=== PATIENT | female | born 1995 | race Caucasian/White ===

== ENCOUNTER 2017-09-27 03:51 | Emergency (ER) | payer OTHER ==
[2017-09-27] MEDS ORDERED: Lidocaine 2.5%/Prilocain 2.5%* 5 GM TUBE TOPICAL ONE (04:47)
[2017-09-27 05:45] LABS: Hematocrit 42 % (35-47); Hemoglobin 14.3 g/dl (12.0-16.0); Mean Corpuscular HGB Conc 34 g/dl (31-36); Mean Corpuscular Hemoglobin 32 pg (27-31); Mean Corpuscular Volume 93 fL (80-97); Mean Platelet Volume 8 um3 (7.4-10.4); Red Blood Count 4.49 10^6/ul (4.0-5.4); Red Cell Distribution Width 13 % (10.5-15); White Blood Count 12.4 10^3/ul (3.5-10.8)
[2017-09-27 06:00] LABS: ALT 9 U/L (7-52); AST 17 U/L (13-39); Albumin 4.6 g/dL (3.2-5.2); Alkaline Phosphatase 44 U/L (34-104); Anion Gap 9 mmol/L (2-11); BUN/Creatinine Ratio 15.7 (8-20); Blood Urea Nitrogen 11 mg/dL (6-24); CO2 Carbon Dioxide 22 mmol/L (22-32); Calcium 9.6 mg/dL (8.6-10.3); Chloride 106 mmol/L (101-111); EGFR African American 138.6 (>60); EGFR Non-African American 107.8 (>60); Glucose 116 mg/dL (70-100); Sodium 137 mmol/L (133-145); Total Protein 7.6 g/dL (6.4-8.9)
[2017-09-27 06:24] VITALS: BP 130/77
--- NOTE | 2017-09-27 06:29 | ED ---
Randall Panchal Tiffany, scribed for Emerson Dillon on 09/27/17 at 0415 . Palpitations / Dysrhythmia - HPI Summary HPI Summary: This patient is a 21 year old F [facility] accompanied by mother with a chief complaint of heart palpitations since thirty minutes ago. Symptoms aggravated by nothing. Symptoms alleviated by nothing. Patient reports chest pain. She feels like she is having an anxiety attack. - History of Current Complaint Chief Complaint: EDDysrhythmPalp Time Seen by Provider: 09/27/17 04:00 Hx Obtained From: Patient Onset/Duration: Lasting Minutes - 30 min, Still Present Aggravating: Nothing Alleviating: Nothing - Allergy/Home Medications Allergies/Adverse Reactions: Allergies Allergy/AdvReac Type Severity Reaction Status Date / Time Pineapple AdvReac Severe Tongue Verified 09/04/15 17:56 Swelling Melatonin AdvReac Intermediate headaches Verified 09/04/15 17:56 PMH/Surg Hx/FS Hx/Imm Hx Previously Healthy: No GI History: Reports: Hx Gastroesophageal Reflux Disease Psychiatric History: Reports: Hx Anxiety Denies: Hx Panic Disorder Infectious Disease History: No Infectious Disease History: Denies: Traveled Outside the [place] in Last 30 Days - Social History Lives: With Family Alcohol Use: Rare Hx Substance Use: Yes Substance Use Type: Reports: Marijuana Hx Tobacco Use: No Smoking Status (MU): Never Smoked Tobacco Review of Systems Positive: Palpitations, Chest Pain Positive: Anxious All Other Systems Reviewed And Are Negative: Yes Physical Exam - Summary Physical Exam Summary: Appearance: Well appearing, no pain distress Skin: warm, dry, reflects adequate perfusion Head/face: normal Eyes: EOMI, SUSY ENT: normal Neck: supple, non-tender Respiratory: CTA, breath sounds present Cardiovascular: tachycardic Abdomen: non-tender, soft Bowel: present Musculoskeletal: normal, strength/ROM intact Neuro: normal, sensory motor intact, A&Ox3 Psych: patient is anxious Triage Information Reviewed: Yes Vital Signs On Initial Exam: Initial Vitals Temp Pulse Resp BP Pulse Ox 98.6 F 134 20 138/93 98 09/27/17 03:56 09/27/17 03:56 09/27/17 03:56 09/27/17 03:56 09/27/17 03:56 Vital Signs Reviewed: Yes Diagnostics - Vital Signs Vital Signs Temp Pulse Resp BP Pulse Ox 09/27/17 03:56 98.6 F 134 20 138/93 98 - Laboratory Lab Results: Lab Results 09/27/17 09/27/17 09/27/17 Range/Units 05:25 05:25 05:25 WBC 12.4 H (3.5-10.8) 10^3/ul RBC 4.49 (4.0-5.4) 10^6/ul Hgb 14.3 (12.0-16.0) g/dl Hct 42 (35-47) % MCV 93 (80-97) fL MCH 32 H (27-31) pg MCHC 34 (31-36) g/dl RDW 13 (10.5-15) % Plt Count 276 (150-450) 10^3/ul MPV 8 (7.4-10.4) um3 Neut % (Auto) 68.9 (38-83) % Lymph % (Auto) 20.1 L (25-47) % [place] % (Auto) 8.2 (1-9) % Eos % (Auto) 2.5 (0-6) % Baso % (Auto) 0.3 (0-2) % Absolute Neuts (auto) 8.6 H (1.5-7.7) 10^3/ul Absolute Lymphs (auto) 2.5 (1.0-4.8) 10^3/ul Absolute Monos (auto) 1.0 H (0-0.8) 10^3/ul Absolute Eos (auto) 0.3 (0-0.6) 10^3/ul Absolute Basos (auto) 0 (0-0.2) 10^3/ul Absolute Nucleated RBC 0.01 10^3/ul Nucleated RBC % 0 INR (Anticoag Therapy) 0.86 (0.77-1.02) APTT 28.6 (26.0-36.3) seconds D-Dimer, Quantitative < 200 (Less Than 230) ng/mL Sodium (133-145) mmol/L Potassium (3.5-5.0) mmol/L Chloride (101-111) mmol/L Carbon Dioxide (22-32) mmol/L Anion Gap (2-11) mmol/L BUN (6-24) mg/dL Creatinine (0.51-0.95) mg/dL Est GFR ( Amer) (>60) Est GFR (Non-Af Amer) (>60) BUN/Creatinine Ratio (8-20) Glucose (70-100) mg/dL Calcium (8.6-10.3) mg/dL Total Bilirubin (0.2-1.0) mg/dL AST (13-39) U/L ALT (7-52) U/L Alkaline Phosphatase (34-104) U/L Troponin I (<0.04) ng/mL B-Natriuretic Peptide 24 ( - 100) pg/mL Total Protein (6.4-8.9) g/dL Albumin (3.2-5.2) g/dL Globulin (2-4) g/dL Albumin/Globulin Ratio (1-3) TSH Beta HCG, Quant mIU/mL 09/27/17 Range/Units 05:25 WBC (3.5-10.8) 10^3/ul RBC (4.0-5.4) 10^6/ul Hgb (12.0-16.0) g/dl Hct (35-47) % MCV (80-97) fL MCH (27-31) pg MCHC (31-36) g/dl RDW (10.5-15) % Plt Count (150-450) 10^3/ul MPV (7.4-10.4) um3 Neut % (Auto) (38-83) % Lymph % (Auto) (25-47) % [place] % (Auto) (1-9) % Eos % (Auto) (0-6) % Baso % (Auto) (0-2) % Absolute Neuts (auto) (1.5-7.7) 10^3/ul Absolute Lymphs (auto) (1.0-4.8) 10^3/ul Absolute Monos (auto) (0-0.8) 10^3/ul Absolute Eos (auto) (0-0.6) 10^3/ul Absolute Basos (auto) (0-0.2) 10^3/ul Absolute Nucleated RBC 10^3/ul Nucleated RBC % INR (Anticoag Therapy) (0.77-1.02) APTT (26.0-36.3) seconds D-Dimer, Quantitative (Less Than 230) ng/mL Sodium 137 (133-145) mmol/L Potassium 4.0 (3.5-5.0) mmol/L Chloride 106 (101-111) mmol/L Carbon Dioxide 22 (22-32) mmol/L Anion Gap 9 (2-11) mmol/L BUN 11 (6-24) mg/dL Creatinine 0.70 (0.51-0.95) mg/dL Est GFR ( Amer) 138.6 (>60) Est GFR (Non-Af Amer) 107.8 (>60) BUN/Creatinine Ratio 15.7 (8-20) Glucose 116 H (70-100) mg/dL Calcium 9.6 (8.6-10.3) mg/dL Total Bilirubin 0.30 (0.2-1.0) mg/dL AST 17 (13-39) U/L ALT 9 (7-52) U/L Alkaline Phosphatase 44 (34-104) U/L Troponin I 0.00 (<0.04) ng/mL B-Natriuretic Peptide ( - 100) pg/mL Total Protein 7.6 (6.4-8.9) g/dL Albumin 4.6 (3.2-5.2) g/dL Globulin 3.0 (2-4) g/dL Albumin/Globulin Ratio 1.5 (1-3) TSH Pending Beta HCG, Quant < 0.60 mIU/mL Result Diagrams: 09/27/17 05:25 09/27/17 05:25 Lab Statement: Any lab studies that have been ordered have been reviewed, and results considered in the medical decision making process. - Radiology CXR Radiology Interpretation Completed By: ED Physician - CXR is negative - EKG 04:17 Cardiac Rate: NL EKG Rhythm: Sinus Tachycardia - 120 BPM Course/Dx - Course Course Of Treatment: This patient is a 21 year old F presenting to [facility] accompanied by mother with a chief complaint of heart palpitations since thirty minutes ago. An EKG reveals sinus tachycardia 120 BPM. CXR is, per ED physician , negative. Bloodwork obtained. In ED course, patient was given Emla. Patient will be discharged with follow up from PCP. The patient is agreeable with this plan. - Diagnoses Differential Diagnosis/HQI/PQRI: Positive: Hyperventilation, Panic Disorder, Other - anxeity reaction, substance abuse Provider Diagnoses: Anxiety, Palpitations, Substance abuse Discharge - Discharge Plan Condition: Stable Disposition: HOME Patient Education Materials: Palpitations (ED), Anxiety (ED) Referrals: Carlos Toney MD [Primary Care Provider] - 3 Days Additional Instructions: Follow up with PCP in three days. Return to ED if symptoms worsen or if new symptoms develop. The documentation as recorded by the Randall jones Tiffany accurately reflects the service I personally performed and the decisions made by , Emerson Dillon.
[2017-09-27 06:43] LABS: TSH (Thyroid Stimulating Horm) 1.72 mcIU/mL (0.34-5.60)
--- NOTE | 2017-09-27 08:05 | RAD ---
HISTORY: Shortness of breath, tachycardia COMPARISONS: None VIEWS: 4: Frontal dual-energy and lateral views of the chest. FINDINGS: CARDIOMEDIASTINAL SILHOUETTE: The cardiomediastinal silhouette is normal. KISHOR: The kishor are normal. PLEURA: The costophrenic angles are sharp. No pleural abnormalities are noted. LUNG PARENCHYMA: The lungs are clear. ABDOMEN: The upper abdomen is clear. There is no subphrenic gas. BONES AND SOFT TISSUES: No bone or soft tissue abnormalities are noted. OTHER: None. IMPRESSION: NO ACTIVE CARDIOPULMONARY DISEASE.
== END 2017-09-27 06:40 | disposition home or self-care (01) ==
LOC: ED 03:51
DX: R00.2 Palpitations (principal); F41.9 Anxiety disorder, unspecified; F19.10 Other psychoactive substance abuse, uncomplicated; K21.9 Gastro-esophageal reflux disease without esophagitis
CPT/HCPCS: 36415; 71020; 80053; 83880; 84443; 84484; 84702; 85025; 85379; 85610; 85730; 93005; 99282; A9270-GY

== ENCOUNTER 2017-12-03 12:35 | Day surgery (SDC) | payer OTHER ==
[~2017-12-03 12:35] MED LIST: Buffered Lidocaine 0.9% SYRIN* 5 ML/SYR SYRINGE INTRADERM ONE
[2017-12-03] MEDS ORDERED: Buffered Lidocaine 0.9% SYRIN* 5 ML/SYR SYRINGE ONE (12:41)
[2017-12-03] MEDS ORDERED: Midazolam* 1 MG/ML 5 ML VIAL (5 MG) ONE (13:24)
[2017-12-03] MEDS ORDERED: Propofol* 10 MG/ML 20 ML BTL IV PUSH ONE ×2 (13:25→16:39)
[2017-12-03] MEDS ORDERED: Lidocaine 2% PF * 5 ML VIAL ONE (13:25)
[2017-12-03] MEDS ORDERED: KETAMINE HCL* 50 MG/ML 10 ML VIAL ONE (16:21)
[2017-12-03] MEDS ORDERED: fentaNYL* 50 MCG/ML 2 ML VIAL (100 MCG VIAL) ONE (16:34)
[2017-12-03] MEDS ORDERED: Naloxone* 0.4 MG/ML 1 ML VIAL IV PRN (17:06)
[2017-12-03] MEDS ORDERED: Scopolamine 1.5 mg* PATCH TRANSDERM PRN (17:06)
[2017-12-03] MEDS ORDERED: Ibuprofen TAB* 600 MG PO PRN (17:06)
[2017-12-03] MEDS ORDERED: fentaNYL* 50 MCG/ML 2 ML VIAL (100 MCG VIAL) IV PRN (17:06)
[2017-12-03] MEDS ORDERED: HYDROmorphone INJ* 1 MG/ML CARPUJECT SYRINGE IV PRN (17:06)
[2017-12-03] MEDS ORDERED: Levalbuterol 0.63MG/3ML NEB* UNIT OF USE INH ONE (17:06)
[2017-12-03] MEDS ORDERED: Ondansetron INJ* 2 MG/ML VIAL IV PRN (17:06)
[2017-12-03] MEDS ORDERED: diPHENhydraMINE IV* 50 MG/ML 1 ml VIAL (BENADRYL) IV PRN (17:06)
[2017-12-03 17:59] VITALS: BP 105/73
--- NOTE | 2017-12-06 03:56 | PRO ---
GASTROENTEROLOGY OPERATIVE REPORT: DATE OF PROCEDURE: 12/03/17 - [facility] OPERATIVE PROCEDURE: Esophagogastroduodenoscopy to the third portion of duodenum. SURGEON: Isabella Lopez MD ANESTHESIA: MAC transitioned over to general anesthesia. HISTORY OF PRESENT ILLNESS: Karrie is a pleasant 22-year-old female with a history of anxiety who presents today with complaints of abdominal pain and gastroesophageal reflux disease. PREOPERATIVE DIAGNOSES: 1. Refractory gastroesophageal reflux disease. 2. Severe anxiety. POSTOPERATIVE DIAGNOSES: 1. Irregular-appearing gastroesophageal junction consistent with gastroesophageal reflux disease. Biopsies were not able to be obtained due to laryngospasm and need for emergent general anesthesia and was asked to abort the procedure per anesthesiologist. 2. Normal-appearing mid and proximal esophagus. 3. Mild antral gastritis with biopsies from the antrum and body and CLOtest. 5. Normal-appearing duodenum to the third portion with biopsies to rule out celiac disease. DESCRIPTION OF PROCEDURE: Esophagogastroduodenoscopy was explained in detail to the patient. The risks, benefits, complications, alternatives, and possibilities of missed lesions were explained and understood. Complications included, but were not limited to reaction to anesthesia, aspiration, increased risk of bleeding, and perforation. All questions were answered. The patient demonstrated understanding of the conversation. Informed consent was obtained. Next, the patient was brought to the endoscopy suite, placed in the left lateral recumbent position, where blood pressure, cardiac, and oxygen monitors were applied. The patient was found to be a fit candidate for moderate anesthesia care. After adequate IV sedation was achieved, a bite-block was placed. Next, a standard adult Olympus endoscope was inserted per os under direct visualization to the first, second, and third portion of the duodenum, which was grossly normal appearing. Cold forceps biopsies were obtained from this area to rule out celiac disease. Further withdrawal of the gastroscope into the gastric lumen revealed mild erythema consistent with antral gastritis. Cold forceps biopsies were obtained from the antrum and body. A CLOtest was also performed to rule out H. pylori. On retroflexion, the patient had a slightly loose gastric cardia sling. As the endoscope was being withdrawn into the distal esophagus, I was requested to abort the procedure per Anesthesia as the patient went into laryngospasm and had to emergently be given general anesthesia. Due to the acuity and laryngospasm, decision was made not to go back and perform the endoscopy at that time As I was maneuvering the endoscope back into the esophagus, there appeared to be an irregular gastroesophageal junction. The rest of the tubular esophagus was normal appearing. Air was then removed from the patient. Endoscope was removed from the patient. The patient tolerated the procedure well overall. Once she was given general anesthesia and her laryngospasm did subside. The patient was transferred to postop recovery. 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 Thank you, Dr. Toney, for allowing us to participate in the care of your patient. If you should have any further questions or concerns, please do not hesitate to contact us. [id number]/[facility] #: [id number] MTDIno
--- NOTE | 2017-12-06 03:56 | PRO ---
CC: Dr. Toney * GASTROENTEROLOGY OPERATIVE REPORT: DATE OF PROCEDURE: 12/03/17 - [facility] OPERATIVE PROCEDURE: Colonoscopy to terminal ileum. SURGEON: Isabella Lopez MD ANESTHESIA: General. HISTORY OF PRESENT ILLNESS: Karrie is a pleasant 22-year-old female with a history of anxiety who presents with intermittent rectal bleeding associated with abdominal pain. She has a maternal grandmother who was diagnosed with colon cancer after the age of 65. PREOPERATIVE DIAGNOSES: 1. Rectal bleeding. 2. Abdominal pain. POSTOPERATIVE DIAGNOSES: 1. Normal-appearing terminal ileum with biopsies to rule out Crohn's disease. 2. Normal-appearing cecum, ascending colon, transverse colon, descending colon , and sigmoid colon. 3. Small nonbleeding internal hemorrhoids on retroflexion. 4. Good colonoscopy preparation. RECOMMENDATIONS: The patient should follow up in our office in 2 weeks with ENRIQUE Pang to discuss biopsy results and determine further plan of care. DESCRIPTION OF PROCEDURE: Colonoscopy was explained in detail to the patient. The risks, benefits, complications, alternatives, and possibilities of missed lesions were explained and understood. Complications included, but were not limited to reaction to anesthesia, aspiration, increased risk of bleeding, and perforation. All questions were answered. The patient demonstrated understanding of the conversation and informed consent was obtained. Next, the patient was brought to the operating room, where blood pressure, cardiac, and oxygen monitors were applied. The patient was found to be a fit candidate for moderate anesthesia care. After adequate IV sedation was achieved, a digital rectal exam was performed, which revealed normal sphincter tone. No palpable masses were appreciated. Next, a standard pediatric Olympus colonoscope was inserted through the rectum, maneuvered all the way to the cecal base, where the ileocecal valve and appendiceal orifice were identified and photographed. Next, the terminal ileum was intubated and was normal appearing. Cold forceps biopsies were obtained of this area to rule out celiac disease. Subsequently, the colonoscope was withdrawn in a fashion that allowed adequate visualization of bowel. The patient overall had a good colonoscopy preparation. The vasculature and mucosa overall was normal appearing. The cecum, ascending colon , transverse colon, descending colon, and sigmoid colon were normal appearing. Entry into the rectum revealed mild nonbleeding internal hemorrhoids. Air was then removed from the patient. Colonoscope was removed from the patient. The patient tolerated the procedure well. There were no immediate complications. After a period of observation, the patient was discharged home with a yard truck driver in stable condition. Thank you, Dr. Toney, for allowing us to participate in the care of your patient. If you should have any further questions or concerns, please do not hesitate to contact our office. [id number]/[facility] #: [id number] RODRÍGUEZ
[2017-12-06] MEDS ORDERED: Scopolamine PATCH Remove* 1 NOTE MISC PATCH OFF ONE (17:06)
== END 2017-12-03 18:00 | disposition home or self-care (01) ==
LOC: OR 12:35
PROVIDERS: ATTEND Internal Medicine Gastroenterology
DX: K62.5 Hemorrhage of anus and rectum (principal); J38.5 Laryngeal spasm; R10.9 Unspecified abdominal pain; K21.9 Gastro-esophageal reflux disease without esophagitis; R19.4 Change in bowel habit; F41.9 Anxiety disorder, unspecified; K64.8 Other hemorrhoids; K29.70 Gastritis, unspecified, without bleeding; Y83.8 Other surgical procedures as the cause of abnormal reaction of the patient, or of later complication, without mention of misadventure at the time of the procedure; K58.9 Irritable bowel syndrome, unspecified; H90.2 Conductive hearing loss, unspecified
CPT/HCPCS: 81025; 87077; 88305; J2250; J2704; J3010

== ENCOUNTER 2019-07-28 17:27 | Emergency (ER) | payer OTHER ==
[2019-07-28 17:49] VITALS: BP 162/104
--- NOTE | 2019-07-28 18:17 | UC ---
UC General HPI - HPI Summary HPI Summary: 23 yo female c/o vaginal irritation, watery foul smelling vaginal d/c, dysuria x several days. No abnormal bleeding, lmp regular most recently 07/16/19. No cramping reported. No back or abd pain. No fever / chills. No sob / cp. Uses barrior method for intercourse. - History of Current Complaint Chief Complaint: UCGU Stated Complaint: URINARY COMPLAINT Time Seen by Provider: 07/28/19 18:14 Hx Obtained From: Patient Hx Last Menstrual Period: July 11, 2019 Pain Intensity: 0 - Allergy/Home Medications Allergies/Adverse Reactions: Allergies Allergy/AdvReac Type Severity Reaction Status Date / Time pineapple AdvReac Severe Tongue Verified 07/28/19 17:46 swelling melatonin AdvReac Intermediate headaches Verified 07/28/19 17:46 PMH/Surg Hx/FS Hx/Imm Hx Previously Healthy: Yes - Surgical History Surgical History: Yes Surgery Procedure, Year, and Place: 2003 LEFT EAR CARTILAGE GRAFT TYMPANOPLASTY. TUBES PLACED A CHILD - Family History Known Family History: Positive: None - Social History Alcohol Use: Weekly Alcohol Amount: 4 NIGHTS A WEEK Substance Use Type: Marijuana Smoking Status (MU): Never Smoked Tobacco Review of Systems All Other Systems Reviewed And Are Negative: Yes Constitutional: Positive: Negative Skin: Positive: Negative Eyes: Positive: Negative ENT: Positive: Negative Respiratory: Positive: Negative Cardiovascular: Positive: Negative Gastrointestinal: Positive: Negative Genitourinary: Positive: Other - see hpi Motor: Positive: Negative Neurovascular: Positive: Negative Musculoskeletal: Positive: Negative Neurological: Positive: Negative Psychological: Positive: Negative Is Patient Immunocompromised?: No Physical Exam Triage Information Reviewed: Yes Appearance: Well-Appearing, Well-Nourished Vital Signs: Initial Vital Signs Temp 98.6 F 07/28/19 17:46 Pulse 123 07/28/19 17:46 Resp 18 07/28/19 17:46 BP 162/104 07/28/19 17:46 Pulse Ox 98 07/28/19 17:46 Eye Exam: Normal - grossly nad ENT Exam: Normal - grossly nad Neck exam: Normal Respiratory Exam: Normal - RR normal, no dyspnea, no tachypnea Cardiovascular Exam: Normal - HR normal, nondiaphoretic. Abdomen Description: Positive: Nontender Pelvic Exam: Positive: Other - external genitalia normal, nad. whitish d/c noted at introitus. see mdm Musculoskeletal Exam: Normal - gait steady, moves x 4 ext's Neurological Exam: Normal - grossly nonfocal Psychological Exam: Normal - conversing easily, nad. Course/Dx - Course Course Of Treatment: Ms. Joseph reports that she suffers from anxiety, and has not yet had a pelvic exam. She is ok with having a partial examination to include the speculum / swabs, but not the bimanual portion. She is aware that this exam is not a pap smear, encouraged to have this done for routine health care when she is able. She expresses understanding and gratitude. Examination attempted, but pt discontinued the exam, d/t anxiety. As such, pelvic exam / internal inspection / ancillaries not performed. Will tx based on clinical s/sx's. 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 I reviewed the urine dip with Ms. Joseph, urine cx sent d/t dysuria (although could be secondary irritation). Advised to hydrate. D/w tx options with pt, consider b. vaginosis (based on sx hx and phys exam), will start topical tx. Does not have pcp, will call transportation security screener office for referral. Also given [facility] referral tel #. Questions as posed answered to the best of my ability. Note - HR / BP noted, these vital signs occurred during extreme anxiety (shaking , tearful). Anxiety significantly decreased but then increased during pelvic. She did calm down by the time of her departure. Seemed relaxed. However, she departed prior to repeat VS obtained. - Diagnoses Provider Diagnosis: Vaginitis Discharge ED - Sign-Out/Discharge Documenting (check all that apply): Patient Departure All imaging exams completed and their final reports reviewed: No Studies - Discharge Plan Condition: Stable Disposition: HOME Prescriptions: Fluconazole 150 MG TAB* [Diflucan 150 MG TAB*] 150 mg PO DAILY #2 tablet metroNIDAZOLE VAGINAL 0.75%* 1 applic VAGINAL BEDTIME 7 Days #1 tube Patient Education Materials: Bacterial Vaginosis (ED), Vaginitis (ED) Referrals: No Primary Care Phys,NOPCP [Primary Care Provider] - [facility] PHYSICIAN REFERRAL [Outside] Additional Instructions: Hydrate. Please follow up with a primary care physician as soon as you are able. Seek medical attention for worse or new problems. Please schedule an appointment with a flight crew scheduler and / or [facility], including pap smear. - Billing Disposition and Condition Condition: STABLE Disposition: Home
== END 2019-07-28 19:20 | disposition home or self-care (01) ==
LOC: UCEAST 17:27
DX: N76.0 Acute vaginitis (principal); F41.9 Anxiety disorder, unspecified; Z91.018 Allergy to other foods; Z88.8 Allergy status to other drugs, medicaments and biological substances
CPT/HCPCS: 81003; 87086; 99212; G0463